=== PATIENT | male | born 1960 ===

== ENCOUNTER 2018-09-14 00:56 | Emergency (ER) | payer SELFPAY ==
[~2018-09-14] VITALS: Ht 182.9 cm; Wt 109.1 kg
[2018-09-14 01:10] VITALS: BP 163/97
== END 2018-09-14 02:30 | disposition left against medical advice (07) ==
LOC: EMS 01:01
DX: R10.9 Unspecified abdominal pain (principal); I10 Essential (primary) hypertension; Z53.21 Procedure and treatment not carried out due to patient leaving prior to being seen by health care provider